=== PATIENT | female | born 1975 | race Caucasian/White ===

== ENCOUNTER → 2025-10-30 14:52 | Outpatient (REF) | payer OTHER, SELFPAY | LOC: MRI 3T 14:52 | PROVIDERS: ATTENDING PHYSICIAN Psychiatry & Neurology Neurology; FAMILY PHYSICIAN Internal Medicine | DX: G43.009 Migraine without aura, not intractable, without status migrainosus (principal); R42 Dizziness and giddiness | CPT/HCPCS: 70553; A9575 ==

== ENCOUNTER → 2025-10-31 12:21 | Outpatient (REF) | payer OTHER, SELFPAY | LOC: MRI 12:21 | PROVIDERS: ATTENDING PHYSICIAN Psychiatry & Neurology Neurology; FAMILY PHYSICIAN Internal Medicine | DX: M54.2 Cervicalgia (principal) | CPT/HCPCS: 70547; 72156; A9575 ==